=== PATIENT | female | born 1935 | race Caucasian/White ===

== ENCOUNTER → 2017-05-28 | Outpatient (CLI) | payer OTHER, BC | LOC: BMCIMAGING 11:24 | PROVIDERS: ATTEND Podiatrist Foot & Ankle Surgery | DX: M19.071 Primary osteoarthritis, right ankle and foot (principal); M20.11 Hallux valgus (acquired), right foot; S93.144A Subluxation of metatarsophalangeal joint of right lesser toe(s), initial encounter ==

== ENCOUNTER → 2017-11-01 | Outpatient (CLI) | payer OTHER, BC | LOC: BMCIMAGING 12:32 | PROVIDERS: ATTEND Family Medicine | DX: S22.32XA Fracture of one rib, left side, initial encounter for closed fracture (principal) | CPT/HCPCS: 71101-PO ==

== ENCOUNTER 2017-11-02 21:33 | Emergency (ER) | payer OTHER, BC ==
[2017-11-02 21:50] VITALS: RESP 16; TEMP 97.7
--- NOTE | 2017-11-02 22:21 | EDPHY ---
H & P Time Seen by Provider: 11/02/17 22:05 HPI/ROS: HPI Fall, headache, vomiting, rib pain. 82-year-old female by private vehicle with her and a friend who is a primary care physician in urgent care physician at [facility]. This patient suffered a mechanical fall 2 days ago. She was coming outside on her porch. She suffered a stroke a couple of years ago and has some residual balance problems. She reports that she tripped and fell to her left. She landed on her left side. The physician who is with her tells me that she had chest x-ray done at [facility] yesterday and this showed a rib fracture on the left. Tonight. The patient told her that she was not feeling well. She complained of nausea. She had 1 episode of nonbilious nonbloody vomiting and complains of a gradual onset dull headache. She denies any new loss of sensation or weakness in her extremities. She denies any nausea at this time. Her mentation has been at baseline according to her physician friend. She denies any extremity pain. She states that she does have chronic neck pain in her neck is more sore than usual since the fall. She is not on any antiplatelet agents or blood thinners. Urinalysis performed at [facility] yesterday by the accompanying physician was read as negative. ROS: Constitutional: No fever, no chills. No weakness. Eyes: No discharge. No changes in vision. ENT: No sore throat. No nasal congestion or rhinorrhea. Respiratory: No cough. No shortness of breath. Cardiac: No chest pain, no palpitations. Gastrointestinal: No abdominal pain, no vomiting, no diarrhea. Genitourinary: No hematuria. No dysuria or increased frequency with urination. Musculoskeletal: No back pain. As above. Skin: No rashes. Neurological: As above. No focal weakness or altered sensation. Past medical history: Stroke in 2015. As above. Diabetes, hypertension, rheumatoid arthritis, osteoarthritis, tonsillectomy hysterectomy, left knee replacement. Irregular heartbeat. Social history: Nonsmoker. No alcohol. Here with her and friend. Physical Exam: General Appearance: Alert, no distress. This patient is responding to questions appropriately and in full sentences. This patient appears well- hydrated and well-nourished. Head: Normocephalic atraumatic. Face: Facial bones are stable on palpation. Eyes: Pupils equal and round and reactive to light, no pallor or injection. No lid erythema or edema. ENT, Mouth: Mucous membranes moist. Dentition is intact. No malocclusion of the jaw. No tongue lacerations or abrasions. Pharynx is clear. The bilateral nasal canals are clear. No septal hematoma. External auditory canals and tympanic membranes are clear bilaterally. No evidence of hemotympanum. Respiratory: There are no retractions, lungs are clear to auscultation with good air movement bilaterally. Chest wall is stable to AP and lateral palpation. No tenderness on palpation of the clavicles. Mild tenderness on palpation mid axillary line at the costal margin. No bony step-off or deformity noted. No ecchymosis. Cardiovascular: Regular rate and rhythm. No murmur. Gastrointestinal: Abdomen is soft and nontender, no masses, bowel sounds normal. Neurological: Motor sensory function is intact. Cranial nerves are normal. Cerebellar function intact. Skin: Warm and dry, no rashes. No lacerations, abrasions or contusions. Musculoskeletal: Neck is supple with vague and mild bilateral paraspinal tenderness from C2 through C6. The trachea is midline. No midline cervical, thoracic, lumbar or sacral tenderness on palpation. Mild left-sided CVA tenderness on palpation. No right-sided CVA tenderness on palpation. Extremities are symmetrical, full range of motion. All joints in the bilateral upper and bilateral lower extremities range without pain or impingement. No tenderness on palpation of the long bones in the bilateral upper and bilateral lower extremities. Psychiatric: No agitation. No depression. Database: EKG: Imaging: CT scan of head: Age-related changes otherwise negative. Results were discussed with staff radiologist Dr. Robert Ramirez. CT scan of cervical spine: Degenerative changes otherwise negative. No evidence of fracture, subluxation, dislocation. Results discussed with staff radiologist Dr. Robert Ramirez. Procedures: Emergency department course: Vital signs reviewed. She is hypertensive. Vital signs are otherwise unremarkable. She was placed in a cervical collar in triage. She was sent for CT imaging of the head and cervical spine. The patient currently is not in significant pain and is declining pain medication. Medical records reviewed from rib series x-ray and PA chest from yesterday at the [facility]. This shows a minimally displaced left lateral rib fracture 10. No acute cardiopulmonary disease process noted. 10:30 p.m., patient re-evaluated. Discussed results of CT scan and review of rib and chest x-rays. Patient's cervical collar was clinically and radiographically cleared at this time. I discussed admission for observation. She does not want to do this. She does feel comfortable going home and states that her pain is not that severe. She denies any nausea at this time. No headache. No loss of sensation or weakness in her extremities. No shortness of breath or difficulty breathing. Her physician friend who accompanies her lives just down the street. She feels comfortable with the patient going home as well. Follow-up and return to emergency department precautions reviewed. I discussed my concern regarding her elevated blood pressure. She will see her primary care physician in the next 2-3 days for evaluation of her blood pressure and follow up on her trauma injuries. Return to emergency department precautions thoroughly reviewed. All of her questions were answered. She was discharged in good condition. Differential Diagnosis: The differential diagnosis on this patient includes but is not limited to cervical strain, rib fracture. Subdural hematoma, epidural hematoma, subarachnoid hemorrhage, traumatic spinal injury, pneumothorax unlikely. This represents a partial list of diagnoses considered. These considerations are based on history, physical exam, past history, reassessment and diagnostic testing. Smoking Status: Former smoker Constitutional: Initial Vital Signs Temperature (C) 36.5 C 11/02/17 21:43 Heart Rate 59 L 11/02/17 21:43 Respiratory Rate 16 11/02/17 21:43 Blood Pressure 195/86 H 11/02/17 21:43 O2 Sat (%) 96 11/02/17 21:43 O2 Delivery Mode Room Air Allergies/Adverse Reactions: codeine [Codeine] Allergy (Mild, Verified 01/04/13 16:47) levofloxacin [From Levaquin] Allergy (Mild, Verified 01/04/13 16:47) Penicillins Allergy (Mild, Verified 01/04/13 16:47) Sulfa (Sulfonamide Antibiotics) Allergy (Mild, Verified 01/04/13 16:47) Home Medications: Medication Instructions Recorded Allopurinol [Allopurinol 100 MG 200 mg PO DAILY 01/04/13 (RX)] Cyanocobalamin [Vitamin B12 100 100 mcg PO DAILY 01/04/13 MCG (OTC)] Doxazosin Mesylate 2 mg PO DAILY 01/04/13 Estradiol [ESTRADIOL] 0.5 mg PO DAILY 01/04/13 Ferrous Sulfate [Ferrous Sulf 325 325 mg PO DAILY 01/04/13 MG (OTC)] Levothyroxine [Synthroid 112 mcg 112 mcg PO DAILY06 01/04/13 (RX)] Losartan/Hydrochlorothiazide 1 tab PO DAILY 01/04/13 [Hyzaar 100-25 Tablet] Pharmacy Completed 01/04/13 01/04/13 Propranolol Sr [Inderal LA 80mg 80 mg PO DAILY 01/04/13 (RX)] Propylene Glycol/Peg 400 [Systane 5 ml OP BID 01/04/13 0.3-0.4% Eye Drops] cycloSPORINE 0.05% [Restasis Opht 1 drop EACHEYE BID 01/04/13 Drops(RX)] Departure - Departure Disposition: Home, Routine, Self-Care Clinical Impression: History of fall, Left rib fracture, Hypertension Condition: Good Instructions: Rib Fracture (ED) Additional Instructions: Read and follow provided instructions. Follow-up with your primary care physician in 1-2 days for re-evaluation of your injuries and evaluation of your blood pressure as discussed. Continue taking her medication as prescribed. Zofran 4 mg oral dissolving tablet: 1 every 4 hr as needed for nausea and vomiting. Return to the emergency department for worsening pain, difficulty breathing, headache, vomiting or other serious concerns. Referrals: Ondina Perez MD [Primary Care Provider] - As per Instructions
[2017-11-02] MEDS ORDERED: ONDANSETRON 4MG PREPACK#2 BTL TAKEHOME ONE (22:36)
[2017-11-02 22:51] VITALS: BP 160/86; PULSE 53; O2SAT 93
== END 2017-11-02 22:50 | disposition home or self-care (01) ==
DX: S22.32XD Fracture of one rib, left side, subsequent encounter for fracture with routine healing (principal); I10 Essential (primary) hypertension; E11.9 Type 2 diabetes mellitus without complications; Z87.891 Personal history of nicotine dependence; W01.0XXD Fall on same level from slipping, tripping and stumbling without subsequent striking against object, subsequent encounter
CPT/HCPCS: 70450; 72125; 99285; L0174

== ENCOUNTER → 2017-11-07 | Outpatient (CLI) | payer OTHER, BC | LOC: GIMAGING 12:30 | PROVIDERS: ATTEND Family Medicine | DX: R07.81 Pleurodynia (principal); E11.8 Type 2 diabetes mellitus with unspecified complications; I10 Essential (primary) hypertension | CPT/HCPCS: 71020-PO ==